=== PATIENT | male | born 1960 | race Two or more races ===

== ENCOUNTER → 2017-07-31 | Outpatient (CLI) | payer OTHER ==
[2017-07-31 10:57] LABS: Appearance,Urine Clear (Clear); Bilirubin,Urine Negative (Negative); Glucose,Urine (UA) Negative (Negative); Ketones,Urine Negative (Negative); Leukocyte Esterase,Urine Negative (Negative); Nitrite,Urine Negative (Negative); PH, Urine 6.5 (5.0-8.0); Protein,Urine Negative (Negative); Specific Gravity,Urine 1.007 (1.001-1.035); UA Billing (MACRO vs. MICRO) CHEM; Urobilinogen,Urine <2.0 mg/dL (<2.0)
[2017-07-31 10:58] LABS: Basophils # (A) 0.1 k/uL (0-0.2); Basophils % (A) 1 %; CH 30.4; CHCM 33.2; Eosinophils # (A) 0.2 k/uL (0-0.7); Eosinophils % (A) 3 %; HDW 2.42; HGB 15.4 gm/dL (13.0-17.5); Luc # (Auto) 0.13; Luc % (Auto) 2; Lymphocytes # (A) 2.1 k/uL (1.0-4.8); Lymphocytes % (A) 31 %; MCH 29.6 pg (25.0-35.0); MCHC 32.1 g/dL (31.0-37.0); MCV 92.1 fL (80.0-100.0); Mean Platelet Volume 7.5; Monocytes # (A) 0.4 k/uL (0-1.0); Monocytes % (A) 5 %; Neutrophils % (A) 58 %; RBC 5.21 m/uL (4.30-5.90); RDW 13.8 % (11.5-15.5); WBC 6.8 k/uL (3.8-10.6); WBC (Perox) 6.17
[2017-07-31 11:07] LABS: Partial Thromboplastin Time 23.8 sec (22.0-30.0); Prothrombin Time 10.4 sec (9.0-12.0)
[2017-07-31 11:20] LABS: Anion Gap 8 mmol/L; Blood Urea Nitrogen 14 mg/dL (9-20); Calcium 9.9 mg/dL (8.4-10.2); Carbon Dioxide 24 mmol/L (22-30); Chloride 107 mmol/L (98-107); Glucose 104 mg/dL (74-99); Non-African American GFR(MDRD) >60 (>60 ml/min/1.73 sqM); Potassium 4.2 mmol/L (3.5-5.1); Sodium 139 mmol/L (137-145)
== END | disposition home or self-care (01) ==
LOC: LABPAT 10:01
PROVIDERS: ATTEND Orthopaedic Surgery Orthopaedic Surgery of the Spine
DX: Z01.812 Encounter for preprocedural laboratory examination (principal); M48.061 Spinal stenosis, lumbar region without neurogenic claudication
CPT/HCPCS: 36415; 80048; 81003; 85025; 85610; 85730; 87070

== ENCOUNTER 2022-01-26 13:49 | Day surgery (SDC) | payer MEDICARE, OTHER ==
[2022-01-25 10:47] VITALS: BMI 32.3
--- NOTE | 2022-01-25 14:15 | P.HPOR ---
History of Present Illness H&P Date: 01/25/22 Chief Complaint: Right thumb CMC arthritis, Right carpal tunnel syndrome Subjective: This is a 60 year old male that presents today for initial evaluation regarding a several year history of right thumb and wrist pain and right hand paresthesias in the ring middle and index fingers that wake him from sleep at night. He states he has constant throbbing and aching and weakness with any type of pinch or grasp. He also has pain with wrist flexion/extension and wears a wrist splint for comfort. Physical Examination: RUE: AIN/PIN/Radial/Ulnar/Median motor intact. Radial/Ulnar/Median SILT. 2+/4 Radial/Ulnar pulses palpated. 5/5 APB, 5/5 FDI. Negative Finkelsteins, positive CMC grind, Positive Durkan's compression. Wrist F/E 30-15. TTP over DRUJ. Imaging: X-Rays of the right hand demonstrate advanced degenerative changes at the thumb CMC joint, index and middle finger MCP joints. Sclerotic appearing lunate with collapse and joint space destruction at radiolunate joint. DRUJ arthritic ch anges with osteophyte formation. Impression: 1.) Right thumb CMC arthritis, severe 2.) Right Stage 3B Kienbocks disease 3.) Right carpal tunnel syndrome 4.) Right DRUJ arthritis Plan: Diagnosis and treatment options were discussed with the patient. He has several areas of complaints due to advanced arthritic changes but he states currently the base of the thumb pain and paresthesias are what bother him the most. We discussed surgical intervention in the form of a right thumb CMC tendon transfer arthroplasty with endoscopic vs open carpal tunnel release to address his most severe symptoms and he is agreeable with this plan of action. Regarding his radiolunate arthritis we discussed that options are limited due to destruction of the radiolunate surface and then wrist arthrodesis could be considered vs total wrist arthroplasty however he would like to address the thumb pain and numbness currently. PCP clearance is requested and he will be scheduled for surgery in the near future. -Chavo Donnelly DO Orthopedic Hand/Upper Extremity Surgeon Past Medical History Past Medical History: Coronary Artery Disease (CAD), Hyperlipidemia, Hypertension, Musculoskeletal Disorder, Osteoarthritis (OA) Additional Past Medical History / Comment(s): Chronic back pain. Urinary urge ncy. Bilateral carpal tunnel, bilateral hand pain. Varicose veins. History of Any Multi-Drug Resistant Organisms: None Reported Past Surgical History: Back Surgery Additional Past Surgical History / Comment(s): BACK SURGERY X2 (DECEMBER & JUL 2017). Past Anesthesia/Blood Transfusion Reactions: No Reported Reaction Past Psychological History: No Psychological Hx Reported Smoking Status: Never smoker Past Alcohol Use History: Occasional Past Drug Use History: Marijuana Additional Drug Use History / Comment(s): OCCASIONAL MARIJUANA USE. Aware no use 24 hrs prior to procedure. - Past Family History Mother Family Medical History: No Reported History Medications and Allergies Home Medications Medication Instructions Recorded Confirmed Type Aspirin 325 mg PO DAILY 08/02/17 01/25/22 History Pravastatin Sodium [Pravachol] 20 mg PO HS 08/02/17 01/25/22 History Antifungal (Unknown Name) 1 tab PO DIRECTED PRN 01/25/22 01/25/22 History Metoprolol Tartrate [Lopressor] 50 mg PO BID 01/25/22 01/25/22 History Allergies Allergy/AdvReac Type Severity Reaction Status Date / Time Penicillins Allergy Unknown Rash/Hives Verified 01/25/22 10:19 Physical Examination Osteopathic Statement: *. No significant issues noted on an osteopathic structural exam other than those noted in the History and Physical/Consult.
[~2022-01-26 13:49] MED LIST: HYDROmorphone 0.5 MG/0.5 ML SYRINGE IVP PRN; LACTATED RINGERS 1,000 ML IV SCH
[2022-01-26] MEDS ORDERED: ONDANSETRON 4 MG/2 ML VIAL ONE (14:21)
[2022-01-26] MEDS ORDERED: DEXAMETHASONE SOD PHOSPHATE 4 MG/ML 1 ML VIAL IVP ONE (14:29)
[2022-01-26] MEDS ORDERED: ONDANSETRON 4 MG/2 ML VIAL IVP ONE (14:29)
[2022-01-26] MEDS ORDERED: CLINDAMYCIN 600 MG in DEXTROSE 5% IN WATER 50 ML IVPB STA ×2 (15:07)
[2022-01-26] MEDS ORDERED: fentaNYL (PF) 50 MCG/ML 2 ML AMP IV ONE (15:13)
[2022-01-26] MEDS ORDERED: MIDAZOLAM 2 MG/2 ML VIAL IV ONE (15:13)
[2022-01-26 17:23] VITALS: TEMP 97
[2022-01-26 18:01] VITALS: RESP 18
[2022-01-26 18:20] VITALS: BP 11/61; PULSE 56
--- NOTE | 2022-01-26 19:01 | P.OP ---
Date of Procedure: 01/26/22 Preoperative Diagnosis: 1.) Left thumb CMC arthritis 2.) Left carpal tunnel syndrome Postoperative Diagnosis: 1.) Left thumb CMC arthritis 2.) Left carpal tunnel syndrome Procedure(s) Performed: 1.) Left thumb CMC tendon transfer arthroplasty with trapezium resection. 2.) Left endoscopic carpal tunnel release. Surgeon: Chavo Donnelly Family Law Attorney #1: Navid Mcqueen Estimated Blood Loss (ml): 5 Pathology: none sent Condition: stable Disposition: PACU Description of Procedure: This is a 61 year old male who presents today for a right thumb CMC tendon transfer arthroplasty after having failed conservative treatment for severe thumb CMC arthritis. Risks and benefits of surgery were discussed with the patient including bleeding, damage to surrounding tissue, infection, need for further surgery as well as risks of anesthesia including pulmonary embolism and even and the patient wished to proceed with surgical intervention. The patients was seen in the pre-operative area by myself. Consent and H&P were completed and updated. The correct extremity was marked in the pre-operative area by myself and all other questions were answered. Patient received a upper extremity nerve block by the department of anesthesia. He then was brought to the operating room by the department of anesthesia. They remained on the portable stretcher and a rolling hand table was brought to the side of the operative extremity. The patient was then drifted off to sleep by the department of anesthesia. A nonsterile tourniquet was then applied to the operative extremity and the right upper extremity was then prepped and draped in normal sterile fashion. Pre-operative time out was performed indicating the correct patient, procedure and laterality. All in the room agreed. Pre-operative antibiotics were given prior to skin incision. The operative extremity was the exsanguinated with an esmarch bandage and the tourniquet was inflated to 250mmHg. 15 blade scalpel was utilized to make a transverse incision on the palmar skin just ulnar to the palmaris longus tendon at the level of the distal wrist crease. Ragnell retractor was then placed radially and blunt dissection was performed to reveal the distal forearm fascia. This was lifted with fine Sotero pick ups and Littler tenotomy scissors were then used to open the forearm fascia transversely and a double skin hook was then placed. Hamate finder was placed into the carpal tunnel and then sequential sized dilators were inserted followed by the synovial elevator to separate the flexor tenosynovium from the undersurface of the transverse carpal ligament and a washboard texture was felt. The MicroAire endoscopic carpal tunnel release system gun was the then inserted into the carpal tunnel hugging the deep portion of the transverse carpal ligament in line with the base of the ring finger. Transverse fibers of the ligament were directly visualized. Pressure was applied on the palm to reveal the distal extent of the transverse carpal ligament. The blade was then deployed and the distal half of the transverse carpal ligament was released. The scope was then brought distal again and remaining transverse fibers were incised with the blade. The proximal half of the transverse carpal ligament was then divided and again the scope was advanced distal and remaining transverse fibers were incised with the blade. The radial and ulnar leaflets were directly visualized and mobile consistent with complete release. Tenotomy scissors were then utilized to release the remaining distal forearm fascia under direct visualization taking care to preserve the palmar cutaneous branch of the median nerve. Longitudinal incision was made over the left thumb CMC joint with a 15 blade scalpel. Blunt dissection was taken down to subcutaneous tissues with littler scissors taking care to preserve the branches of the superficial radial nerve. Dorsal radial artery was identified proximally in the incision and protected throughout the procedure. Scalpel was then made to incise the thumb CMC joint creating full thickness flaps off of the proximal metacarpal base and trapezium, this plane was further developed with a periosteal elevator. Elevator was then utilized to identify the thumb CMC joint and scaphotrapezial joint. Rongeur was then used to excise the trapezium in a piecemeal fashion. After trapeziectomy was performed FCR tendon was identified at the floor of the bed where the trapezium previously was located and the dorsal base of the thumb metacarpal was drilled with a 2.0 drill bit followed by a 3.5 drill bit. Rongeur was used to make a small groove at the dorsal base of metacarpal. Attention was then drawn to the volar wrist. Incision was made over FCR tendon distally and proximally at the level of the musculotendinous junction. FCR sheath was then opened and widened with a small hemostat. 2-0 Ethibond was then used to dailey the FCR tendon in half and the ulnar half of FCR tendon was harvested and sharply dissected by passing the 2-0 ethibond through the proximal incision and then sharply cutting the proximal portion of the tendon. The ulnar half of the FCR tendon was then passed through the FCR sheath and separation from the radial half of the tendon was carried all the way down it's insertion at the index metacarpal base. Loop was made with 2-0 suture through previously made drill holes and the FCR tendon was passed through the drill hole at the base of the first metacarpal and tensioned appropriately. 4-0 Ethibond was then used to suture the FCR tendon to itself in a figure of 8 fashion, this was repeated twice. 90 degree curved hemostat was then used to wrap the FCR tendon around itself and secured with multiple 4-0 ethibond figure of 8 stitches. The wound was then irrigated. Capsular closure was performed with 4-0 monocryl. Skin was closed with several interrupted 4-0 Monocryl sutures followed by a running 4-0 nylon stitch. Sterile dressing consisting of adaptic, 4x4s cast padding, and a thumb spica plaster splint was applied. Tourniquet was let down and the hand had brisk cap refill and normal perfusion immediately. The patient was then woken by the department of anesthesia and transferred to PACU in stable condition. Navid C[place] was present for the case and assisted in major portions of procedure and protection of vital neurovascular structures. Navid C[place] was present for the case and assisted in major portions of the procedure. Chvao Donnelly D.O. Orthopedic Hand/Upper Extremity Surgeon
[2022-01-27] MEDS ORDERED: HYDROmorphone (PF) 1 MG/ML ONE (15:30)
[2022-01-27] MEDS ORDERED: LIDOCAINE 2% INJ 20 MG/ML (2 ML VIAL) ONE (15:30)
[2022-01-27] MEDS ORDERED: MIDAZOLAM 2 MG/2 ML VIAL ONE (15:30)
[2022-01-27] MEDS ORDERED: PHENYLEPHRINE-0.9% NACL SYG 1,000 MCG/10 ML SYRINGE ONE (15:30)
[2022-01-27] MEDS ORDERED: ePHEDrine 50 MG/ML 1 ML VIAL ONE (15:30)
[2022-01-27] MEDS ORDERED: ROPIVACAINE 5 MG/ML 30 ML VIAL ONE (15:30)
[2022-01-27] MEDS ORDERED: fentaNYL (PF) 50 MCG/ML 2 ML AMP ONE (15:30)
[2022-01-27] MEDS ORDERED: PROPOFOL 10 MG/ML 20 ML VIAL IV ONE (15:30)
--- NOTE | 2022-01-28 08:36 | P.ANPRN ---
Procedure Note - Anesthesia - Nerve Block Performed Right Axillary Time Out Performed: Yes (15:12) Date of Procedure: 01/26/22 Procedure Start Time: :12 Procedure Stop Time: Location of Patient: PreOp Indication: Acute Post-Operative Pain, Requested by Surgeon (Dr Donnelly) Sedation Type: Sedate with meaningful contact maintained Preparation: Sterile Prep Position: Supine Catheter: None Needle Types: Pajunk Needle Gauge: Other (see comment) (22g) Ultrasound used to visualize needle placement: Yes Ultrasound used to observe medication spread: Yes Injectate: 0.5% Ropivacaine (see comment for volume) (22cc) Blood Aspirated: No Pain Paresthesia on Injection Noted: No Resistance on Injection: Normal Image Stored and Saved: Yes Events: Uneventful and Well Tolerated
--- NOTE | 2022-02-01 14:03 | CDI ---
In responding to this query, please exercise your independent professional judgment. The [facility] Coding Staff and Clinical Documentation Specialists appreciate your assistance in clarifying documentation, maintaining compliance with coding guidelines, accurately documenting patients condition and capturing severity of illness. The fact that a question is asked does not imply that any particular answer is desired or expected. Communication forms are a method of clarifying documentation and are not made part of the Legal Health Record. Thank you in advance for your clarification. Revised September 2014 Documentation Clarification Form Date: 02/01/2022 01:56:49 PM From: Alessnadra Thomas Phone: Admit Date: 01/26/2022 01:49:00 PM Patient Name: Jerry Menard Visit Number: [id number] Discharge Date: Payor: MEDICARE Dear Dr. Donnelly, Please provide clarification as to the laterality of the procedure. H&P states right and procedure note states left for both procedures. Please clarify. Please respond below the line at the bottom. Thank you for your kind Consideration. Addendum to operative note made. The correct laterality of the procedure is the right side. REBECA
== END 2022-01-26 18:28 | disposition home or self-care (01) ==
LOC: OR 13:49
PROVIDERS: ATTEND Orthopaedic Surgery Hand Surgery
DX: G56.03 Carpal tunnel syndrome, bilateral upper limbs (principal); M18.11 Unilateral primary osteoarthritis of first carpometacarpal joint, right hand; I10 Essential (primary) hypertension; E11.9 Type 2 diabetes mellitus without complications; I25.10 Atherosclerotic heart disease of native coronary artery without angina pectoris; E78.2 Mixed hyperlipidemia; E03.9 Hypothyroidism, unspecified; I77.6 Arteritis, unspecified; G89.29 Other chronic pain; M54.9 Dorsalgia, unspecified; K21.9 Gastro-esophageal reflux disease without esophagitis; I83.90 Asymptomatic varicose veins of unspecified lower extremity; Z98.890 Other specified postprocedural states; Z97.2 Presence of dental prosthetic device (complete) (partial); Z79.82 Long term (current) use of aspirin; Z79.899 Other long term (current) drug therapy; Z88.2 Allergy status to sulfonamides; Z88.0 Allergy status to penicillin
CPT/HCPCS: 25447; 25310; 64417; 76942; J2250; J1100; J2405; J3010; 64415

== ENCOUNTER → 2022-10-11 | Outpatient (CLI) | payer MEDICARE, OTHER ==
[2022-10-11 15:33] LABS: Basophils # (A) 0.13 X 10*3/uL (0.00-0.10); Basophils % (A) 1.3 %; Eosinophils % (A) 5.1 %; HCT 45.8 % (39.6-50.0); HGB 15.4 g/dL (13.0-17.0); Immature Grans, Automated 0.9 %; Lymphocytes # (A) 2.96 X 10*3/uL (0.90-5.00); Lymphocytes % (A) 30.2 %; MCH 30.3 pg (27.0-32.0); MCHC 33.6 g/dL (32.0-37.0); Mean Platelet Volume 10.7 fL (9.5-12.2); Monocytes # (A) 0.78 X 10*3/uL (0.20-1.00); NRBC Per 100 WBC 0 /100 WBCS (0.0-0.0); Neutrophils # (A) 5.33 X 10*3/uL (1.80-7.70); Neutrophils % (A) 54.5 %; Platelet Count 245 X 10*3/uL (140-440); RBC 5.09 X 10*6/uL (4.40-5.60); RDW 13.2 % (11.5-14.5); WBC 9.79 X 10*3/uL (4.50-10.00)
[2022-10-11 18:51] LABS: Anion Gap 13.5 mmol/L (10.00-18.00); Carbon Dioxide 25.2 mmol/L (20.0-27.5)
== END | disposition home or self-care (01) ==
LOC: LABPAT 10:04
PROVIDERS: ATTEND Orthopaedic Surgery
DX: Z01.818 Encounter for other preprocedural examination (principal); M23.91 Unspecified internal derangement of right knee; R00.1 Bradycardia, unspecified
CPT/HCPCS: 80051; 85025; 93005

== ENCOUNTER 2022-12-08 12:08 | Day surgery (SDC) | payer MEDICARE, OTHER ==
[~2022-12-08 12:08] MED LIST changes: +DEXAMETHASONE SOD PHOSPHATE 4 MG/ML 1 ML VIAL IV ONE; +LIDOCAINE 1% (10MG/ML) FOR IV START INTRADERMA PRN; +ONDANSETRON 4 MG/2 ML VIAL IVP ONE
[2022-12-08 13:34] VITALS: TEMP 98
[2022-12-08] MEDS ORDERED: BUPIVACAINE (PF) 0.25% 30 ML VIAL SQ ONE ×2 (15:43→16:20)
[2022-12-08] MEDS ORDERED: PROPOFOL 10 MG/ML 20 ML VIAL IV ONE (15:44)
[2022-12-08] MEDS ORDERED: MIDAZOLAM 2 MG/2 ML VIAL ONE (15:44)
[2022-12-08] MEDS ORDERED: fentaNYL (PF) 50 MCG/ML 2 ML AMP ONE (15:44)
[2022-12-08] MEDS ORDERED: LIDOCAINE 2% INJ 20 MG/ML (2 ML VIAL) ONE (15:44)
[2022-12-08] MEDS ORDERED: LACTATED RINGERS 1,000 ML IV ONE (16:12)
--- NOTE | 2022-12-08 16:38 | P.OP ---
Date of Procedure: 12/08/22 Preoperative Diagnosis: Internal derangement right knee Postoperative Diagnosis: 1. Medial and lateral meniscal tears right knee 2. Grade 4 chondromalacia medial femoral condyle right knee 3. Reactive synovitis medial, lateral and suprapatellar compartments right knee Procedure(s) Performed: 1. Arthroscopic partial medial and lateral meniscectomy right knee 2. Arthroscopic microfracture medial femoral condyle right knee 3. Arthroscopic partial synovectomy medial, lateral and suprapatellar compartments right knee Anesthesia: GETA, local Surgeon: Lukas Bills Estimated Blood Loss (ml): 5 Pathology: none sent Condition: stable Disposition: PACU Indications for Procedure: 61-year-old gentleman seen with progressive right knee pain. After having treatment options discussed, he elected to proceed with right knee arthroscopy. Operative Findings: See description of procedure Description of Procedure: Patient was taken to the operative suite. Patient underwent a general anesthetic by the department of anesthesia. Patient was given preoperative antibiotics. The right lower extremity was placed in a well-padded arthroscopic leg orosco. The right leg was prepped and draped in the normal sterile orthopedic fashion. A lateral parapatellar and suprapatellar incision was made. Trochars were inserted. Arthroscopy was initiated. Suprapatellar pouch revealed diffuse thick reactive synovitis. The patellofemoral joint appeared to articulate congruently. There were grade 2 chondromalacia changes without any tears present. The scope was guided into the medial gutter. No loose bodies or plica were identified. The scope was then guided into the medial compartment. A medial parapatellar incision was made. Trocar inserted followed by probe. There was a complex tear involving the posterior horn of the medial meniscus. There were grade 4 chondromalacia of both the femoral condyle and tibial plateau. There was an area of exposed bone along the femoral condyle measuring 1 cm an area of exposed bone of the tibial plateau measuring 3 cm. There was thick reactive synovitis anteriorly. I performed a partial medial meniscectomy getting down to stable meniscal tissue. I performed a light chondroplasty of the medial femoral condyle. I performed a partial synovectomy decompressing the reactive synovitis. I introduced a microfracture awl and I performed a microfracture of the medial femoral condyle area of exposed bone penetrating the bone with resultant bleeding at the microfracture site. The residual meniscus was probed and was found to be stable. The residual osteochondral surface a ppeared stable. There was good decompression of the synovitis. Scope and probe were then guided into the intercondylar notch. Cruciates were identified, probed and found to be stable. The scope and probe were then guided into lateral compartment. There was a radial tear involving the posterior horn of lateral meniscus. There was grade 1 chondromalacia changes of the femoral condyle and grade 2 chondromalacia changes of the tibial plateau without any osteochondral tears. There was some thick reactive synovitis anteriorly. I performed a partial medial meniscectomy getting down to stable meniscal tissue. I performed a partial synovectomy decompressing the reactive synovitis. The residual meniscus was stable. There was good decompression of the synovitis. The scope was in guided back into the suprapatellar compartment. I introduced the motorized shaver into the suprapatellar compartment. I debrided some piecemeal fragments of meniscus I encountered. I performed a partial syn ovectomy. The shaver was now removed. There was good decompression of the synovitis. I took one more look around the entire knee, no residual debris. Instruments were now removed from the joint. The joint was infiltrated with .25% Marcaine. Steri-Strips were applied to the portal sites. Sterile dressings were applied. The patient was placed into a PREM hose. No tourniquet was utilized. The patient was awakened, transferred to a bed and taken to recovery stable satisfactory condition.
[2022-12-08] MEDS ORDERED: HYDROcodone/APAP 5-325MG 1 EACH TAB ONE (17:57)
[2022-12-08] MEDS ORDERED: HYDROcodone/APAP 5-325MG 1 EACH TAB PO ONE (18:00)
[2022-12-08 18:08] VITALS: RESP 20
[2022-12-08 18:34] VITALS: BP 136/84; PULSE 62
== END 2022-12-08 18:50 | disposition home or self-care (01) ==
LOC: OR 12:08
PROVIDERS: ATTEND Orthopaedic Surgery
DX: S83.231A Complex tear of medial meniscus, current injury, right knee, initial encounter (principal); S83.281A Other tear of lateral meniscus, current injury, right knee, initial encounter; M94.261 Chondromalacia, right knee; M65.861 Other synovitis and tenosynovitis, right lower leg; I10 Essential (primary) hypertension; E78.5 Hyperlipidemia, unspecified; F41.9 Anxiety disorder, unspecified; F12.90 Cannabis use, unspecified, uncomplicated; Z98.890 Other specified postprocedural states; Z79.899 Other long term (current) drug therapy; Z88.0 Allergy status to penicillin; X58.XXXA Exposure to other specified factors, initial encounter
CPT/HCPCS: 29880; 29879; J2250; J1100; J0690; J2405; J3010; J2704; J1170; J2001